=== PATIENT | male | born 1970 | race African-American/Black ===

== ENCOUNTER 2019-06-23 11:43 | Emergency (ER) | payer SELFPAY ==
[~2019-06-23] VITALS: Ht 177.8 cm; Wt 87.0 kg
[2019-06-23 11:46] VITALS: BP 196/94
[2019-06-23] MEDS: TETANUS, DIPHTHERIA, PERTUSSIS VAC/PF 0.5ML (>7YR OLD) IM ONE (13:45)
[2019-06-23] MEDS ORDERED: LIDOCAINE HCL/PF 1% 10 MG/ML 5ML VIAL IJ ONE (13:45)
[2019-06-23] MEDS ORDERED: BACITRACIN ZINC OINT UDPKT TOP ONE (13:45)
[2019-06-23] MEDS: HYDROCODONE/ACETAMINOPHEN 5/325MG TABLET PO ONE (13:45)
[2019-06-23] MEDS: ONDANSETRON 4MG ODT PO ONE (13:45)
== END 2019-06-23 16:06 | disposition home or self-care (01) ==
LOC: ER 11:43
DX: S62.663A Nondisplaced fracture of distal phalanx of left middle finger, initial encounter for closed fracture (principal); S61.213A Laceration without foreign body of left middle finger without damage to nail, initial encounter; W31.89XA Contact with other specified machinery, initial encounter; Y93.89 Activity, other specified; Y92.89 Other specified places as the place of occurrence of the external cause; Y99.8 Other external cause status
CPT/HCPCS: 12002; 73140; 99283; J3490; Q0162; Z7610